=== PATIENT | male | born 1960 | race Caucasian/White ===

== ENCOUNTER 2023-09-25 11:24 | Emergency (ER) | payer BC ==
[2023-09-25] MEDS ORDERED: Morphine 4 MG/ML VIAL ONE (12:01)
[2023-09-25] MEDS ORDERED: Ondansetron PF 4 MG/2 ML Vial ONE (12:01)
[2023-09-25] MEDS ORDERED: Ketamine 50 MG/ML (10ML VIAL) ONE (12:21)
[2023-09-25] MEDS ORDERED: Midazolam HCl 2 mg/2 ml Vial ONE (12:38)
== END 2023-09-25 14:08 | disposition home or self-care (01) ==
LOC: MADERS 11:24
DX: S82.851A Displaced trimalleolar fracture of right lower leg, initial encounter for closed fracture (principal); I10 Essential (primary) hypertension; F17.210 Nicotine dependence, cigarettes, uncomplicated; W27.1XXA Contact with garden tool, initial encounter
CPT/HCPCS: 29515; 93005; 94760; 96374; 96375; 99152; 99153; J2250; J2272; J2405